=== PATIENT | male | born 1980 | race African-American/Black ===

== ENCOUNTER 2018-10-11 11:27 | Emergency (ER) | payer MEDICAID, OTHER ==
[~2018-10-11] VITALS: Ht 188 cm; Wt 105.0 kg
[2018-10-11] MEDS ORDERED: TEMA30CA PO (11:35)
[2018-10-11] MEDS ORDERED: DIVA-75 PO (11:35)
[2018-10-11] MEDS ORDERED: QUET300T2 PO (11:35)
[2018-10-11] MEDS ORDERED: MIRT45TA5 PO (11:35)
[2018-10-11] MEDS ORDERED: ZYDS20 PO (11:35)
[2018-10-11] MEDS ORDERED: BENZ2TAB7 PO (11:35)
[2018-10-11] MEDS ORDERED: HYDR12.529 PO (11:35)
[2018-10-11] MEDS ORDERED: ACETAMINOPHEN 325MG TABLET PO ONE (16:15)
[2018-10-11] MEDS ORDERED: IBUPROFEN 800MG TABLET PO ONE (16:15)
[2018-10-11 16:23] VITALS: BP 142/97
== END 2018-10-11 22:00 | disposition home or self-care (01) ==
LOC: ER 11:27
DX: R51 Headache (principal); I10 Essential (primary) hypertension; F32.9 Major depressive disorder, single episode, unspecified; F20.9 Schizophrenia, unspecified; R62.59 Other lack of expected normal physiological development in childhood
CPT/HCPCS: 82962; 99283